=== PATIENT | female | born 1980 | race Caucasian/White ===

== ENCOUNTER 2021-09-04 13:23 | Emergency (ER) | payer SELFPAY ==
--- OUTSIDE RECORDS SUMMARY | 2021-09-04 13:27 | XMS REPORT | Continuity of Care Document ---
:1980 Author Organization [facility] t Address Formerly [facility] [address] Mckee. [address] [place] [id number] Care Team Providers Name Role Phone GENARO Attending Clinician Unavailable Problems This patient has no known problems. Allergies, Adverse Reactions, Alerts This patient has no known allergies or adverse reactions. Medications This patient has no known medications. Immunizations Ordered Immunization Filled Immunization Date Status Commen ts Source Name Name Moderna COVID-19 Moderna COVID-19 2021-05-06 Completed Vaccine Vaccine 00:00:00 Procedures This patient has no known procedures. Encounters Start End Encounter Admission Attending Care Care Encounter Source Date/Time Date/Time Type Type Clinicians Facility Department ID 2021-05-06 2021-05-06 Outpatient [facility] [id number] [facility] 00:00:00 00:00:00 2020-06-01 2020-06-01 Emergency GENARO [facility] [id number] [place] 00:00:00 00:00:00 [place] [id number] Results This patient has no known results.
[2021-09-04] MEDS ORDERED: METHYLPREDNISOLONE 125 MG INJ ONE (16:42)
[2021-09-04] MEDS ORDERED: METHOCARBAMOL 1,000 MG/10 ML VIAL IV ONE (16:42)
[2021-09-04] MEDS ORDERED: KETOROLAC 30 MG/ML INJ ONE (16:43)
[2021-09-04] MEDS ORDERED: NA CHLORIDE 0.9% 100 ML ONE (16:43)
[2021-09-04 16:57] LABS: Urine Blood Negative (Negative); Urine Glucose Negative (Negative); Urine Protein Negative (Negative); Urine Specific Gravity 1.025 (1.005-1.030); Urine pH 6.5 (5.0-7.0)
--- NOTE | 2021-09-04 17:32 | RAD REPORT ---
EXAM DESCRIPTION: CT - Spine Lumbar Wo Con - 09/04/2021 5:17 pm CLINICAL HISTORY: Radiculopathy. PAIN COMPARISON: No comparisons TECHNIQUE: Axial noncontrast CT imaging of the lumbar spine was performed with coronal and sagittal re-formatted images. All CT scans are performed using dose optimization technique as appropriate and may include automated exposure control or mA/KV adjustment according to patient size. FINDINGS: No acute lumbar spine fracture seen. Multilevel degenerate disc disease. Moderate disc hei ght loss at L3-4. Paraspinal tissues are normal in thickness. No paraspinal abscess or hematoma seen. Broad-based disc bulge with left paracentral and foraminal disc protrusion at the L3-4 level resultin g in moderate to severe central spinal stenosis, severe left lateral recess stenosis, and contact of the exiting left L4 nerve root. Mild neural foraminal narrowing is noted at L4-5 and L5-S1. Intervertebral disc disease assessment is inherently limited by CT. Within these limitations, no high -grade canal stenosis suspected. IMPRESSION: Large left paracentral/ foraminal disc protrusion at L3-4 results in severe left lateral recess stenosis and impingement on the exiting left L3 nerve root. This is presumably the patient's source of left-sided radiculopathy .Also present is moderate to severe central spinal stenosis. Consider MRI follow-up for assessment of disc disease if clinically desired.
[2021-09-04 17:54] LABS: Urine Specific Gravity/Preg 1.025 (1.005-1.030)
[2021-09-04] MEDS ORDERED: MORPHINE 4 MG/ML SYR ONE (19:02)
--- NOTE | 2021-09-04 19:30 | ER ---
Nurse's Notes [facility] Name: Kitty Donohue Age: 41 yrs Sex: Female : 1980 Arrival Date: 09/04/2021 Time: 13:25 Bed 18 Private MD: Diagnosis: Radiculopathy, lumbar region;Sciatica, left side;Low back pain;Unspecified symptoms and signs involving the musculoskeletal system;Other intervertebral disc degeneration, lumbar region Presentation: 09/04 14:04 Chief complaint: Patient states: Back pain that began x 4 days ago; states pain starts vg1 in between shoulders and radiates down to Left leg. Denies headache or any recent injuries. States was moving and was caring a couple of bag and 'stumbled' into a hole, states fell but did not hit head. Pt has been alternating between Tylenol and Ibuprofen; states at 0630 took 1 g PO. Coronavirus screen: Vaccine status: Patient reports receiving the 2nd dose of the covid vaccine. Client denies travel out of the [place] in the last 14 days. Ebola Screen: Patient negative for fever greater than or equal to 101.5 degrees Fahrenheit, and additional compatible Ebola Virus Disease symptoms. Initial Sepsis Screen: Does the patient meet any 2 criteria? No. Patient's initial sepsis screen is negative. Does the patient have a suspected source of infection? No. Patient's initial sepsis screen is negative. Risk Assessment: Do you want to hurt yourself or someone else? Patient reports no desire to harm self or others. Onset of symptoms was August 31, 2021. 14:04 Method Of Arrival: Ambulatory vg1 14:04 Acuity: LAURENCE 3 vg1 Triage Assessment: 14:09 General: Appears in no apparent distress. uncomfortable, Behavior is cooperative. Pain: vg1 Complains of pain in back and left leg Pain currently is 8 out of 10 on a pain scale. Pain began x 4 days. Musculoskeletal: Circulation, motion, and sensation intact. 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 - Social history:: Smoking status: Patient reports the use of cigarette tobacco products, denies chronic smoking, but will smoke occasionally. Screenin:10 Abuse screen: Denies threats or abuse. Nutritional screening: No deficits noted. ll3 Tuberculosis screening: No symptoms or risk factors identified. Fall Risk IV access (20 points). Total Aguayo Fall Scale indicates No Risk (0-24 pts). Assessment: 17:10 General: Appears in no apparent distress. uncomfortable, Behavior is calm, cooperative. ll3 Pain: Complains of pain in left leg and back. Neuro: Level of Consciousness is awake, alert, obeys commands, Oriented to person, place, time, situation. Cardiovascular: Patient's skin is warm and dry. Respiratory: Airway is patent Respiratory effort is even, labored, Respiratory pattern is regular, symmetrical. Derm: Skin is pink, warm \T\ dry. Musculoskeletal: Range of motion: intact in all extremities, Reports pain in left leg and back. 18:40 Reassessment: Patient appears in no apparent distress at this time. No changes from ll3 previously documented assessment. Patient and/or family updated on plan of care and expected duration. Pain level reassessed. Patient is alert, oriented x 3, equal unlabored respirations, skin warm/dry/pink. Vital Signs: 14:04 BP 151 / 103; Pulse 98; Resp 18; Temp 98.3; Pulse Ox 100% ; Weight 70.31 kg; Height 5 vg1 ft. 4 in. (162.56 cm); Pain 8/10; 18:36 BP 136 / 95; Pulse 81; Resp 15; Temp 98.0(O); Pulse Ox 100% on R/A; ll3 19:49 BP 145 / 96; Pulse 75; Resp 18; Pulse Ox 100% on R/A; sm5 14:04 Body Mass Index 26.61 (70.31 kg, 162.56 cm) vg1 ED Course: 13:25 Patient arrived in ED. as 14:07 Triage completed. vg1 14:09 Arm band placed on. vg1 16:10 Daniel Sotomayor MD is Attending Physician. kdr 16:50 Sanju Teran RN is Primary Nurse. ll3 17:10 Patient has correct armband on for positive identification. Bed in low position. Call ll3 light in reach. Side rails up X 1. 17:10 Inserted saline lock: 22 gauge in left hand, using aseptic technique. ll3 17:17 CT Lumbar Spine Wo Con In Process Unspecified. EDMS 19:49 No provider procedures requiring assistance completed. IV discontinued, intact, sm5 bleeding controlled, No redness/swelling at site. Pressure dressing applied. Administered Medications: 17:04 Drug: Ketorolac 15 mg Route: IVP; Site: left hand; ll3 18:35 Follow up: Response: No adverse reaction ll3 17:09 Drug: Robaxin (methocarbamol) 1 grams Route: IVPB; Infused Over: 1 hrs; Site: left hand;ll3 18:35 Follow up: Response: No adverse reaction; IV Status: Completed infusion; IV Intake: ll3 100ml 17:09 Drug: SOLU-Medrol (methylPrednisoLONE) 125 mg Route: IVP; Site: left hand; ll3 18:35 Follow up: Response: No adverse reaction ll3 19:07 Drug: morphine 4 mg Route: IVP; Site: left hand; ll3 Intake: 18:35 IV: 100ml; Total: 100ml. ll3 Outcome: 19:30 Discharge ordered by . kdr 19:49 Discharged to home ambulatory. sm5 19:49 Condition: good 19:49 Discharge instructions given to patient, Instructed on discharge instructions, medication usage, Demonstrated understanding of instructions, follow-up care, medications, Prescriptions given X 4. 19:50 Patient left the ED. sm5 Signatures: Dispatcher [employer] EDMS Daniel Sotomayor MD MD kdr Starla Christensen Victoria, RN RN vg1 Sanju Teran, LYDIA FREEMAN 3 Audrey Loza, LYDIA RN sm5 Corrections: (The following items were deleted from the chart) 14:07 14:04 Pulse 98bpm; Resp 18bpm; Pulse Ox 100%; Temp 98.3F; 70.31 kg; Height 5 ft. 4 in.; vg1 BMI: 26.6; Pain 8/10; vg1 14:09 14:04 Chief complaint: Patient states: Back pain that began x 4 days ago; states pain vg1 starts in between shoulders and radiates down to Left leg. Denies headache or any recent injuries. States was moving and was caring a couple of bag and 'stumbled' into a hole, states fell but did not hit head. vg1 14:09 14:09 Allergies: Aspirin; vg1 vg1
--- NOTE | 2021-09-04 19:31 | EDPHYS ---
Physician Documentation [facility] Name: Kitty Donohue Age: 41 yrs Sex: Female : 1980 Arrival Date: 09/04/2021 Time: 13:25 Bed 18 Private MD: ED Physician Daniel Sotomayor HPI: 09/04 17:21 This 41 yrs old Female presents to ER via Ambulatory with complaints of Back Pain. kdr 17:21 The patient presents with pain that is acute. The symptoms are located in the low back. kdr Onset: The symptoms/episode began/occurred acutely. Location: left low back and left mid back. Associated signs and symptoms: The patient has no apparent associated signs or symptoms. Modifying factors: The patient symptoms are alleviated by nothing, the patient symptoms are aggravated by any movement. Severity of symptoms: At their worst the symptoms were mild, moderate, just prior to arrival, in the emergency department the symptoms are unchanged. The patient has not experienced similar symptoms in the past. The patient has not recently seen a physician. The patient was walking 4 days ago when she suddenly stepped in a hole and wrenched her back. Since then she has had persistent significant pain in her lower back and left flank. 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 - Social history:: Smoking status: Patient reports the use of cigarette tobacco products, denies chronic smoking, but will smoke occasionally. ROS: 17:21 Constitutional: Negative for fever, chills, and weight loss, Eyes: Negative for injury, kdr pain, redness, and discharge, Neck: Negative for injury, pain, and swelling, Cardiovascular: Negative for chest pain, palpitations, and edema, Respiratory: Negative for shortness of breath, cough, wheezing, and pleuritic chest pain, Abdomen/GI: Negative for abdominal pain, nausea, vomiting, diarrhea, and constipation, Back: Negative for injury and pain, : Negative for injury, bleeding, discharge, and swelling, MS/Extremity: Negative for injury and deformity, patient does have generalized broad back pain Skin: Negative for injury, rash, and discoloration, Neuro: Negative for headache, weakness, numbness, tingling, and seizure activity. Psych: Negative for depression, anxiety, suicide ideation, homicidal ideation, and hallucinations, Allergy/Immunology: Negative for hives, rash, and allergies, Endocrine: Negative for neck swelling, polydipsia, polyuria, polyphagia, and marked weight changes, Hematologic/Lymphatic: Negative for swollen nodes, abnormal bleeding, and unusual bruising. Exam: 17:21 Constitutional: This is a well developed, well nourished patient who is awake, alert, kdr and in no acute distress. Head/Face: Normocephalic, atraumatic. Eyes: Pupils equal round and reactive to light, extra-ocular motions intact. Lids and lashes normal. Conjunctiva and sclera are non-icteric and not injected. Cornea within normal limits. Periorbital areas with no swelling, redness, or edema. Neck: Trachea midline, no thyromegaly or masses palpated, and no cervical lymphadenopathy. Supple, full range of motion without nuchal rigidity, or vertebral point tenderness. No Meningismus. Chest/axilla: Normal chest wall appearance and motion. Nontender with no deformity. No lesions are appreciated. Cardiovascular: Regular rate and rhythm with a normal S1 and S2. No gallops, murmurs, or rubs. Normal PMI, no JVD. No pulse deficits. Respiratory: Lungs have equal breath sounds bilaterally, clear to auscultation and percussion. No rales, rhonchi or wheezes noted. No increased work of breathing, no retractions or nasal flaring. Abdomen/GI: Soft, non-tender, with normal bowel sounds. No distension or tympany. No guarding or rebound. No evidence of tenderness throughout. Skin: Warm, dry with normal turgor. Normal color with no rashes, no lesions, and no evidence of cellulitis. MS/ Extremity: Pulses equal, no cyanosis. Neurovascular intact. Full, normal range of motion. Neuro: Awake and alert, GCS 15, oriented to person, place, time, and situation. Cranial nerves II-XII grossly intact. Motor strength 5/5 in all extremities. Sensory grossly intact. Cerebellar exam normal. Normal gait. Psych: Awake, alert, with orientation to person, place and time. Behavior, mood, and affect are within normal limits. 17:21 Back: pain, that is mild. Vital Signs: 14:04 BP 151 / 103; Pulse 98; Resp 18; Temp 98.3; Pulse Ox 100% ; Weight 70.31 kg; Height 5 vg1 ft. 4 in. (162.56 cm); Pain 8/10; 18:36 BP 136 / 95; Pulse 81; Resp 15; Temp 98.0(O); Pulse Ox 100% on R/A; ll3 19:49 BP 145 / 96; Pulse 75; Resp 18; Pulse Ox 100% on R/A; sm5 14:04 Body Mass Index 26.61 (70.31 kg, 162.56 cm) vg1 MDM: 17:21 Data reviewed: vital signs, nurses notes, lab test result(s), radiologic studies. kdr Counseling: I had a detailed discussion with the patient and/or guardian regarding: the historical points, exam findings, and any diagnostic results supporting the discharge/admit diagnosis, lab results, radiology results, the need for outpatient follow up. 19:30 Patient medically screened. kdr 19:34 ED course: Discussed with Dr. Powers who suggested that given the severity of the kdr findings on CT, the patient should be transferred for neurosurgical evaluation and possible decompression. Subsequently I spoke with Dr. Wiggins at [facility]. He was on-call for neurosurgery. He stated that since the patient did not have any significant weakness at this time that the patient could follow-up in the spine clinic at [facility]. I reviewed the findings and my conversations with the patient and significant other. I reviewed the signs and symptoms of significant cord or nerve root impingement including weakness, loss of bowel or bladder control. Patient was happy with the care provided. She was not pain-free but had some improvement with the interventions given.. 09/04 16:57 Order name: Urine Dipstick-Ancillary; Complete Time: 17:57 EDMS 09/04 17:02 Order name: Urine --Ancillary (enter results); Complete Time: 17:57 eb 09/04 16:29 Order name: CT Lumbar Spine Wo Con; Complete Time: 17:57 kdr 09/04 16:29 Order name: Urine Dipstick-Ancillary (obtain specimen); Complete Time: 17:10 kdr Administered Medications: 17:04 Drug: Ketorolac 15 mg Route: IVP; Site: left hand; ll3 18:35 Follow up: Response: No adverse reaction ll3 17:09 Drug: Robaxin (methocarbamol) 1 grams Route: IVPB; Infused Over: 1 hrs; Site: left hand;ll3 18:35 Follow up: Response: No adverse reaction; IV Status: Completed infusion; IV Intake: ll3 100ml 17:09 Drug: SOLU-Medrol (methylPrednisoLONE) 125 mg Route: IVP; Site: left hand; ll3 18:35 Follow up: Response: No adverse reaction ll3 19:07 Drug: morphine 4 mg Route: IVP; Site: left hand; ll3 Disposition Summary: 09/04/21 19:30 Discharge Ordered Location: Home kdr Problem: an ongoing problem kdr Symptoms: have improved kdr Condition: Stable kdr Diagnosis - Radiculopathy, lumbar region kdr - Sciatica, left side kdr - Low back pain kdr - Unspecified symptoms and signs involving the musculoskeletal system kdr - Other intervertebral disc degeneration, lumbar region kdr Followup: kdr - With: Private Physician - When: 2 - 3 days - Reason: If symptoms return, Further diagnostic work-up, Recheck today's complaints, Continuance of care, Re-evaluation by your physician Discharge Instructions: - Discharge Summary Sheet kdr - Acute Back Pain, Adult kdr - Musculoskeletal Pain kdr - Sciatica, [id number] kdr - Radicular Pain kdr Forms: - Medication Reconciliation Form kdr - Thank You Letter kdr - Prescription Opioid Use kdr Prescriptions: - methocarbamol 500 mg Oral tablet - take 2 tablet by ORAL route 4 times per day As needed; 40 tablet; Refills: 0, kdr Product Selection Permitted - Ibuprofen 600 mg Oral Tablet - take 1 tablet by ORAL route every 6 hours As needed take with food; 30 tablet; kdr Refills: 0, Product Selection Permitted - Tylenol 325 mg Oral Tablet - take 2 tablets by ORAL route every 6 hours As needed as needed primarily at kdr night for sleep. Use ibuprofen during the day; 16 tablet; Refills: 0, Product Selection Permitted - Medrol (Héctor) 4 mg Oral Tablets, Dose Pack - take 1 tablet by ORAL route as directed - follow package instructions; 1 kdr packet; Refills: 0, Product Selection Permitted Signatures: Dispatcher [employer] EDMS Rittger, DanielMD MD kleber alexander Victoria RN RN vg1 Sanju Teran RN RN ll3 Corrections: (The following items were deleted from the chart) 14: 14:09 Allergies: Aspirin; vg1 vg1
[2021-09-04 19:56] VITALS: O2SAT 100
[2021-09-04 19:57] VITALS: TEMP 98
[2021-09-04 20:00] VITALS: BP 145/96
== END 2021-09-04 19:50 | disposition home or self-care (01) ==
LOC: ER 13:23
DX: M54.32 Sciatica, left side (principal); M51.36 Other intervertebral disc degeneration, lumbar region; M54.16 Radiculopathy, lumbar region
CPT/HCPCS: 72131; 81003; 81025; 96365; 96375; 99284; J2800; J2930